=== PATIENT | female | born 1970 | race Caucasian/White ===

== ENCOUNTER 2019-04-14 13:27 | Inpatient (IN) | payer OTHER ==
[~2019-04-14] VITALS: Ht 180.3 cm; Wt 93.0 kg
== END 2019-04-16 14:50 | disposition home or self-care (01) | DRG 812 ==
LOC: ER 13:27 → SURG-SUITE 16:45
PROVIDERS: ADMIT Obstetrics & Gynecology
PROC: 30233N1 Transfusion of Nonautologous Red Blood Cells into Peripheral Vein, Percutaneous Approach (ICD-10-PCS; principal; 2019-04-14)
PROC: BU4CZZZ Ultrasonography of Uterus and Ovaries (ICD-10-PCS; 2019-04-14)
DX: D50.0 Iron deficiency anemia secondary to blood loss (chronic) (principal); N93.8 Other specified abnormal uterine and vaginal bleeding

== ENCOUNTER 2019-12-08 11:16 | Inpatient (IN) | payer OTHER ==
[~2019-12-08] VITALS: Ht 180.3 cm; Wt 95.3 kg
[2019-12-08] MEDS ORDERED: CRYSELLE-28 TA1 EACH (11:51)
[2019-12-13] MEDS ORDERED: MAXFE CAPLET1 EACH PO (18:58)
[2019-12-13] MEDS ORDERED: ELIQUIS5 MG PO (18:58)
== END 2019-12-13 19:06 | disposition home or self-care (01) | DRG 760 ==
LOC: ER 11:16 → OB/GYN 15:36
PROVIDERS: ADMIT Obstetrics & Gynecology; ATTEND Obstetrics & Gynecology
DX: N93.8 Other specified abnormal uterine and vaginal bleeding (principal); I82.402 Acute embolism and thrombosis of unspecified deep veins of left lower extremity; D64.9 Anemia, unspecified; D50.0 Iron deficiency anemia secondary to blood loss (chronic); L40.9 Psoriasis, unspecified; Z20.828 Contact with and (suspected) exposure to other viral communicable diseases

== ENCOUNTER 2019-12-14 14:05 | Emergency (ER) | payer OTHER ==
[~2019-12-14] VITALS: Ht 180.3 cm; Wt 99.8 kg
[~2019-12-14 14:05] MED LIST: CRYSELLE-28 TA1 EACH; ELIQUIS5 MG PO; MAXFE CAPLET1 EACH PO
== END 2019-12-14 18:50 | disposition home or self-care (01) ==
LOC: ER 14:05
DX: N93.8 Other specified abnormal uterine and vaginal bleeding (principal); D25.9 Leiomyoma of uterus, unspecified; D50.9 Iron deficiency anemia, unspecified

== ENCOUNTER 2019-12-19 12:23 | Inpatient (IN) | payer OTHER ==
[~2019-12-19] VITALS: Ht 180.3 cm; Wt 99.8 kg
== END 2019-12-27 12:01 | disposition home or self-care (01) | DRG 742 ==
LOC: OB/GYN 12:23 → SURH 12-22 15:20
PROVIDERS: ADMIT Obstetrics & Gynecology; ATTEND Obstetrics & Gynecology
PROC: 0US20ZZ Reposition Bilateral Ovaries, Open Approach (ICD-10-PCS; 2019-12-20)
PROC: 0UB70ZZ Excision of Bilateral Fallopian Tubes, Open Approach (ICD-10-PCS; 2019-12-20)
PROC: 0UT90ZL Resection of Uterus, Supracervical, Open Approach (ICD-10-PCS; principal; 2019-12-20 19:00)
PROC: 4A19X1Z Monitoring of Respiratory Capacity, External Approach (ICD-10-PCS; 2019-12-21)
PROC: 4A12X4Z Monitoring of Cardiac Electrical Activity, External Approach (ICD-10-PCS; 2019-12-22)
PROC: 4A033R1 Measurement of Arterial Saturation, Peripheral, Percutaneous Approach (ICD-10-PCS; 2019-12-22)
PROC: CB2YYZZ Tomographic (Tomo) Nuclear Medicine Imaging of Respiratory System using Other Radionuclide (ICD-10-PCS; 2019-12-22)
DX: D25.1 Intramural leiomyoma of uterus (principal); I80.222 Phlebitis and thrombophlebitis of left popliteal vein; J98.11 Atelectasis; D25.2 Subserosal leiomyoma of uterus; N80.2 Endometriosis of fallopian tube; T38.895A Adverse effect of other hormones and synthetic substitutes, initial encounter; D50.0 Iron deficiency anemia secondary to blood loss (chronic); L40.50 Arthropathic psoriasis, unspecified; R09.02 Hypoxemia; Z20.828 Contact with and (suspected) exposure to other viral communicable diseases